=== PATIENT | female | born 1995 | race Two or more races ===

== ENCOUNTER 2017-03-31 10:27 | Inpatient (IN) | payer MEDICAID ==
--- NOTE | 2017-03-29 11:02 | PDGENHP ---
History and Physical - Chief Complaint Bilateral hip pain - History of Present Illness 1. Bilateral avascular necrosis of the hips~ 2. BL hip Dysplasia HISTORY OF PRESENT ILLNESS: Nikoleis a 21 y.o.~~female~with lupus and chronic steroid use~who I have had the pleasure to consult on today. I have enjoyed meeting her. She~lives in [place], [place]. 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 ~She~is single; she~has no~children. ~Nikoleenjoys hanging out with family, no sports. Tanks bilateral~hip pain started 2 months ago (L>R), with no~recalled trauma or injury, and with no~previous complaints. Nikoledoes not have~a known history of hip dysplasia. Presentation today is of anterior bilateral~hip pain. ~The hip does~wake her~at night and does not~click and catch on her. Sitting can be a real struggle~for her. Nikoledoes~report suffering from lower back pain episodes. Nikolehas not~participated in physical therapy and has not~tried other conservative measures. Nikolehas~utilized medication for pain management, including Vicodin and tramadol. Nikolehas used medication for a couple of months. Nikoleunderstands that she~has a hip and pelvis problem which should be researched and wishes to get a better understanding of her~hip status, followed by an establishment of a treatment strategy, hoping she~would be able to get back to her~well being active life. History: Past medical history: ~ Patient ~has a past medical history of AVN (avascular necrosis of bone) (HC code ); Hypertension; Lupus; and Lupus nephritis (HC code). Relevant familial history: None which is relevant Past surgical history: kidney biopsy Nikolehas never received general anesthesia. I have reviewed, verified and agree with the past medical, surgical, family and social history. Current Medications:Shayyhas a current medication list which includes the following prescription(s): hydrocodone/acetaminophen, lisinopril, mycophenolate mofetil, prednisone, and tramadol. ALLERGIES:~has No Known Allergies. Objective: Physical Examination: Nikoleis 5~feet 2~inches tall and weighs 113~Lbs. Abeba~is AAO x3; she~is well-nourished, in NAD. Skin is warm and dry. ~Breathing is non-labored. ~CV with RRR by pulse. Abdomen is soft, NTND. Currently, she~walks with a abnormal antalgic~gait. Trendelenburg sign is negative~and proprioception is normal, both~sides. She~presents with mild~signs of joint laxity. Beightons Score: 4 ~ Lower spine examination is negative~for sciatic or femoral nerve irritation with negative~SLR &~femoral stretch tests. Range of motion of the spine is normal~for flexion, extension, and rotations, with no~associated pain. Strength, Sensation and pulses are normal - bilaterally Ankles and knees exams are normal~and no~mal-alignment is evident. She~has no leg length discrepancy. Thigh circumference is symmetric~with no evidence for muscle atrophy~on both~ sides. Hip ROM (degrees): FL ER At 90~hip FL IR At 90~hip FL AB AD EX IR Neutral hip ER Neutral hip R 115 50 20 55 5 10 45 40 L 110~(pain) 45 25 50 5 10 45 40 Specific hip and pelvis tests: Quadrant JAMESON Roll Add. Longus R Negative +++ Negative Negative L +++ +++ +++ Negative Glut. Med ITB Pos. Imp R Negative 5/5 strength Negative 5/5 strength +++ L Negative 5/5 strength Negative 5/5 strength +++ Squeeze test measured normal Bony Symphysis pubis is pain free~to touch while concentric activity of the rectus abdominis, does not~produce pain at its insertion. Ilio Psos specific tests are negative for pain during cycling for both hips~and remarkable for nothing HF has no pain both hips. + anterior~capsule tenderness bilaterally Greater trochanteric burse is pain free~on both hips. Piriformis tests: FAIR is negative, with no~local signs of neuritis related to sciatic nerve. SIJs examination is produces pain on both sides~with normal~JAMESON in relation and local tenderness. Hamstrings tests are negative~functional contraction and negative~tendinopathy both hips. On a daily basis, the following percentages reflect Abeba's overall total pain : Deep hip: 100% Imaging: Radiology studies which I have personally reviewed, analyzed and measured are below: XR: AP of the hip and pelvis: Performed in a good~technique Coccyx to pubic symphysis distance 1.0~cm. 0~degrees caudal [place] Lines are preserved. No~Pathological signs are seen in the Symphysis Pubis. No~Pathological signs are seen at the Ischial tuberosity. ~ Specific measurements show: NSA~ LCE Sourcil~Angle Sharp's angle Lat. Cam Lat. Pincer C.Over~sign Head~Coverage % ATDmm R 121 26 6 42 N N 1 o'clock 73 24 L 121 29 3 37 N N 1 o'clock 77 25 Pos. wall sign ISS NAD ~~Dysplasia Comments R ++ Negative 7.1~mm + L ++ ++ 5.2~mm + Sclerosis Sup. Lat. OA Cysts Joint Space-WBZ Joint Space-Medial R Negative Negative Negative 3.7~mm 3.2~mm L Negative Negative Negative 3.4~mm 3.3~mm X Table lateral: Anterior cam lesion is not seen~on both hips. Alpha Angle: ~ Right 51~dergrees Left 57~degrees MRI shows: Shows avascular necrosis of bilateral femoral heads without collapse. Seen also on T1. Impression and plan: Nikoleis a 21 y.o.~active female~suffering from symptomatic bilateral~hip pain and knee pain~due to steroid induced avascular necrosis~causing significant disability to her~and altering her~sport and life activities. Physical examination, imaging, and her~story correspond with the diagnosis mentioned above. We discussed with the patient her diagnosis and that the most likely etiology of her avascular necrosis was her chronic use of steroids required for her lupus treatment. We educated her that her AVN is in an early stage and her femoral heads and cartilage surfaces appear to remain intact. As such, we are able to offer her surgical bilateral core decompressions with placement of autograft bone. We explained that this surgery will allow a reduction in pressure in her femoral heads and regrowth of bone into the areas. It was also explained that AVN can progress such that the femoral heads collapse and the cartilage is damaged and she could eventually develop arthritis. If she progresses to these later stages a core decompression would not be available to her and only a joint replacement surgery would be available for her hip pain. However, a joint replacement in such a young patient is not recommended given the high chance of requiring further revision in the future. As such we recommend she minimize high impact and weight bearing activities on her hips until she has core decompressions with bone autograft performed. Will refer patient to Dr. Kasper for evaluation and management of AVN of her knees. We may be able to coordinate surgical procedures for the patient if needed. We also encourage her to continue taking the bisphosphonate prescribed to her for AVN by her other doctors. Nikolewill review the info presented~and schedule surgery when she is ready. Nikoleis happy with this plan. I have also supplied her~with handouts, outlining the expected surgical treatment and rehab involved. I wish~Nikoleall the best, ~~ Rosio Beltran MD History Information - Allergies/Home Medication List Allergies/Adverse Reactions: No Known Allergies Allergy (Unverified 03/20/17 15:13) Home Medications: ALENDRONATE SODIUM 03/20/17 [Last Taken Unknown] Cellcept 03/20/17 [Last Taken Unknown] Lisinopril 03/20/17 [Last Taken Unknown] Plaquenil 200 mg (*) 03/20/17 [Last Taken Unknown] Prednisone 03/20/17 [Last Taken Unknown] I have personally reviewed and updated: medical history - Social History Smoking Status: Never smoked Review of Systems Review of Systems: Physical Exam Physical Exam:
[2017-03-31] MEDS ORDERED: BUPIVACAINE 0.25% 30 ML SDV ONE ×2 (10:33→16:32)
[2017-03-31] MEDS ORDERED: LIDOCAINE 1% 2 ML INJ ONE (10:51)
[2017-03-31] MEDS ORDERED: ceFAZolin 2 GM/SWFI 2 GM/20 ML SYR IVP ONE (10:58)
[2017-03-31] MEDS ORDERED: PREGABALIN 150 MG CAP PO ONE (10:58)
[2017-03-31] MEDS ORDERED: ACETAMINOPHEN 500 MG TAB PO ONE (10:58)
[2017-03-31] MEDS ORDERED: LIDOCAINE 1% 2 ML INJ ID PRN (11:03)
[2017-03-31] MEDS ORDERED: LR 1,000 ML IV ONE (11:03)
[2017-03-31] MEDS ORDERED: MIDAZOLAM 2 MG/2 ML VIAL IVP ONE (11:57)
--- NOTE | 2017-03-31 11:58 | PDANEPAE ---
ANE Past Medical History - Cardiovascular History Hx Hypertension: Yes Hx Arrhythmias: No Hx Chest Pain: No Hx Coronary Artery / Peripheral Vascular Disease: No Hx CHF / Valvular Disease: No Hx Palpitations: No - Pulmonary History Hx COPD: No Hx Asthma/Reactive Airway Disease: No Hx Recent Upper Respiratory Infection: No Hx Oxygen in Use at Home: No Hx Sleep Apnea: No Sleep Apnea Screening Result - Last Documented: Negative - Neurologic History Hx Cerebrovascular Accident: No Hx Seizures: No Hx Dementia: No - Endocrine History Hx Diabetes: No Hypothyroid: No Hyperthyroid: No Obesity: no - Renal History Hx Renal Disorders: Yes Renal History Comment: lupus nephritis-on Lisinopril - Liver History Hx Hepatic Disorders: No - Neurological & Psychiatric Hx Hx Neurological and Psychiatric Disorders: No Neurological / Psychiatric History Comment: low back pain - Cancer History Hx Cancer: No - Congenital Disorder History Hx Congenital Disorders: No - GI History GERD: no Hx Gastrointestinal Disorders: No - Other Health History Other Health History: avn=avascular necrosis causing bilat hip pain. LUPUS SLE and LUPUS NEPHRITIS. Rituximab infusion Q 6-8 mos - Chronic Pain History Chronic Pain: No - Surgical History Prior Surgeries: kidney bx. neck lymph nodes excised age 6. wisdom teeth removed ANE Review of Systems Review of Systems: - Exercise capacity METS (RN): 4 METS - Systems Constitutional: Reports: no symptoms EENMT: Reports: no symptoms Cardiac: Reports: no symptoms Respiratory: Reports: no symptoms Gastrointestinal: Reports: no symptoms Genitourinary: Reports: no symptoms Muscolosketal: Reports: no symptoms Skin: Reports: no symptoms ANE Patient History - Allergies Allergies/Adverse Reactions: No Known Allergies Allergy (Unverified 03/20/17 15:13) - Home Medications Home Medications: ALENDRONATE SODIUM 03/20/17 [Last Taken 03/27/17] Cellcept 03/20/17 [Last Taken 03/30/17 22:00] Lisinopril 03/20/17 [Last Taken 03/30/17 22:00] Plaquenil 200 mg (*) 03/20/17 [Last Taken 03/30/17 22:00] Prednisone 03/20/17 [Last Taken 03/30/17 22:00] - NPO status NPO Since - Liquids (Date): 03/31/17 NPO Since - Liquids (Time): 07:15 NPO Since - Solids (Date): 03/30/17 NPO Since - Solids (Time): 23:00 - Anes Hx Anes Hx: no prior problems - Smoking Hx Smoking Status: Never smoked - Alcohol Use Alcohol Use: Rarely - Family Anes Hx Family Anes Hx: neg - N/A ANE Labs/Vital Signs - Vital Signs Blood Pressure: 108/65 Heart Rate: 91 Respiratory Rate: 15 O2 Sat (%): 100 Height: 157.48 cm Weight: 51.256 kg ANE Physical Exam - Airway Neck exam: FROM Mallampati Score: Class 1 Mouth exam: normal dental/mouth exam - Pulmonary Pulmonary: no respiratory distress, no rales or rhonchi, clear to auscultation - Cardiovascular Cardiovascular: regular rate and rhythym, no murmur, rub, or gallop - ASA Status ASA Status: II ANE Anesthesia Plan Anesthesia Plan: GA w LMA
[2017-03-31] MEDS ORDERED: LR 500 ML IV PRN (16:12)
[2017-03-31] MEDS ORDERED: ONDANSETRON 4 MG/2 ML VIAL IVP PRN ×2 (16:12→17:07)
[2017-03-31] MEDS ORDERED: PROMETHAZINE HCL 25 MG/ML INJ IVP PRN (16:12)
[2017-03-31] MEDS ORDERED: HYDROCODONE/APAP 5/325 TAB PO PRN (16:12)
[2017-03-31] MEDS ORDERED: ACETAMINOPHEN 500 MG TAB PO PRN (16:12)
[2017-03-31] MEDS ORDERED: fentaNYL 100 MCG/2 ML INJ IVP PRN (16:12)
[2017-03-31] MEDS ORDERED: NALOXONE HCL 0.4 MG/ML INJ IVP PRN (16:12)
[2017-03-31] MEDS ORDERED: OXYCODONE/APAP 5/325 TAB PO PRN (16:12)
[2017-03-31] MEDS ORDERED: ONDANSETRON 4 MG/2 ML VIAL ONE (16:31)
[2017-03-31] MEDS ORDERED: DEXAMETHASONE 4 MG/ML VIAL ONE (16:31)
[2017-03-31] MEDS ORDERED: LIDOCAINE 2% 5 ML SDV ONE (16:32)
[2017-03-31] MEDS ORDERED: fentaNYL 100 MCG/2 ML INJ ONE (16:32)
[2017-03-31] MEDS ORDERED: PROPOFOL 200 MG/20 ML VIAL ONE (16:32)
[2017-03-31] MEDS ORDERED: MIDAZOLAM 2 MG/2 ML VIAL ONE (16:39)
[2017-03-31] MEDS ORDERED: DIAZEPAM 2 MG TAB PO PRN (17:07)
[2017-03-31] MEDS ORDERED: BISACODYL 10 MG SUPP PR PRN (17:07)
[2017-03-31] MEDS ORDERED: LACTULOSE 20 GM/30 ML UDCUP PO PRN (17:07)
[2017-03-31] MEDS ORDERED: ONDANSETRON DISINTEGRATING 4 MG TAB PO PRN (17:07)
[2017-03-31] MEDS ORDERED: ACETAMINOPHEN 325 MG TAB PO PRN (17:07)
[2017-03-31] MEDS ORDERED: MAGNESIUM HYDROXIDE 30 ML UDCUP PO PRN (17:07)
[2017-03-31] MEDS ORDERED: POLYETHYLENE GLYCOL 3350 17 GM PKT PO PRN (17:07)
[2017-03-31] MEDS ORDERED: fentaNYL 250 MCG/5 ML INJ ONE (17:11)
[2017-03-31] MEDS ORDERED: NS 1,000 ML IV SCH (17:15)
[2017-03-31] MEDS ORDERED: HYDROmorphone HCL/NS/PF 0.4 MG/2 ML SYR IVP PRN (17:17)
--- NOTE | 2017-03-31 19:16 | POSTANESTH ---
Post Anesthetic Evaluation Cardiovascular Status: Normal, Stable Respiratory Status: Normal, Stable Level of Consciousness/Mental Status: Can Participate in Eval Pain Control: Adequate, Prn Tx Ordered Nausea/Vomiting Control: Adequate, Prn Tx Ordered Complications Possibly Related to Anesthesia: None Noted
[2017-03-31] MEDS ORDERED: HYDROmorphONE/DILAUDID 1 MG/ML INJ ONE (19:29)
[2017-03-31] MEDS: HYDROmorphONE/DILAUDID 1 MG/ML INJ IVP PRN ×2 (19:32→19:44)
[2017-03-31] MEDS ORDERED: OXYCODONE/APAP 5/325 TAB ONE (20:08)
[2017-03-31] MEDS ORDERED: LISINOPRIL 5 MG TAB PO SCH (21:00)
[2017-03-31] MEDS ORDERED: MYCOPHENOLATE MOFETIL 250 MG CAP PO SCH (21:00)
[2017-03-31] MEDS ORDERED: predniSONE 5 MG TAB PO SCH (21:00)
[2017-03-31] MEDS: HYDROXYCHLOROQUINE SULFATE 200 MG TAB PO SCH (21:33)
[2017-03-31] MEDS: MYCOPHENOLATE 500 MG PO SCH (21:34)
[2017-03-31 22:55] VITALS: RESP 16
[2017-03-31] MEDS: SENNOSIDES/DOCUSATE SODIUM TAB PO SCH (23:27)
--- NOTE | 2017-04-01 00:38 | SUROPNOTE ---
[facility] Operative Report - Surgery Surgery was performed at [facility] at the [facility] on 03/31/17 Diagnosis: 1. Bilateral AVN of femoral head Indication: Failure to obtain satisfactory results with long standing conservative measures. Operation 1:Left side - Harvesting of bone marrow aspirate (BMA) from iliac crest and core decompression with BMA and allograft to femoral head AVN Surgeon: Gurjit Pelaez MD Collateral Clerk:Saar Jaramillo MD Anaesthetic:General Procedure: Supine on operating table. General anaesthetic. Antibiotics given. Using a designated Biomet BMA set Right iliac crest was approached 2 cm posterior from ASIS via a 5mm incision. A trochar was tapped int the iliac bone and 100 ml of BMA was aspirated from the pelvis. The BMA was handed over to Biomet rep in a sterile manner, for centrifugation and preparation for implantation. Using c-arm a 2.4 mm drill bit was drilled into the AVN lesion using both AP and Lateral views, via a 10mm incision.. Once in location a reamer was used over the drill bit to open the lateral cortex. The designated cannula was then introduced via the same tract and was tapped in to the center of the lesion, 5 mm away from sub chondral bone. 25ml of BMA was injected to the AVN area. Allograft Bone paste was introduced through the cannula to "close the door" on the tract so BMA stays in the lesion area. Cannula was backed out and skin closed. Operation 2: Right side - Harvesting of bone marrow aspirate (BMA) from iliac crest and core decompression with BMA and allograft to femoral head AVN Surgeon: Gurjit Pelaez MD Collateral Clerk:Larry Jaramilol MD Anaesthetic:General Procedure: Supine on operating table. General anaesthetic. Antibiotics given. Using a designated Biomet BMA set Right iliac crest was approached 2 cm posterior from ASIS via a 5mm incision. A trochar was tapped int the iliac bone and 100 ml of BMA was aspirated from the pelvis. The BMA was handed over to Biomet rep in a sterile manner, for centrifugation and preparation for implantation. Using c-arm a 2.4 mm drill bit was drilled into the AVN lesion using both AP and Lateral views, via a 10mm incision.. Once in location a reamer was used over the drill bit to open the lateral cortex. The designated cannula was then introduced via the same tract and was tapped in to the center of the lesion, 5 mm away from sub chondral bone. 25ml of BMA was injected to the AVN area. Allograft Bone cheeps were introduced through the cannula to "close the door" on the tract so BMA stays in the lesion area. Cannula was backed out and skin closed. After surgery, patientmoved both lower limbs and had no NV compromise. Post op instructions: 1. As toleratedweight bearing crutches for 6weeks 2. Pain killers as prescribed 3. Follow up visit with me, as scheduled, where a rehab protocol would be discussed 4. Avoid hip external rotation for 4 weeks Kind regards, Dr. Gurjit Pelaez
[2017-04-01] MEDS: OXYCODONE/APAP 5/325 TAB PO PRN ×2 (04:59→11:00)
[2017-04-01] MEDS: SENNOSIDES/DOCUSATE SODIUM TAB PO SCH (08:36)
[2017-04-01] MEDS: HYDROXYCHLOROQUINE SULFATE 200 MG TAB PO SCH (08:36)
[2017-04-01] MEDS: MYCOPHENOLATE 500 MG PO SCH (08:37)
[2017-04-01] MEDS ORDERED: LISINOPRIL 5 MG TAB PO SCH ×2 (09:00→21:00)
[2017-04-01] MEDS ORDERED: predniSONE 5 MG TAB PO SCH ×2 (09:00→21:00)
[2017-04-01] MEDS ORDERED: HYDROXYCHLOROQUINE SULFATE 200 MG TAB PO SCH ×2 (09:00→21:00)
[2017-04-01 11:30] VITALS: BP 111/66; PULSE 100; TEMP 98.6; O2SAT 95
[2017-04-01] MEDS ORDERED: NAPROXEN SODIUM 220 MG TAB PO PRN (11:30)
--- NOTE | 2017-04-01 12:18 | ASDISCHSUM ---
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
[2017-04-01] MEDS ORDERED: NON-FORMULARY NEW DRUG (Mycophenolate Mofetil [Cellcept] 1,500 MG) PO SCH (21:00)
[2017-04-02] MEDS ORDERED: Herbals/Supplements -Info Only PO SCH (09:00)
[2017-04-03] MEDS ORDERED: ALENDRONATE SODIUM 70 MG TAB PO SCH (07:00)
== END 2017-04-01 12:10 | disposition home or self-care (01) | DRG 482 ==
LOC: F3N 10:27 → EDSTATUS 11:15 → OBSVTOIN 17:07 → F3N 20:21
PROVIDERS: ADMIT Orthopaedic Surgery Sports Medicine; ATTEND Orthopaedic Surgery Sports Medicine
DX: M87.851 Other osteonecrosis, right femur (principal); M87.852 Other osteonecrosis, left femur; M32.9 Systemic lupus erythematosus, unspecified; Z79.52 Long term (current) use of systemic steroids
CPT/HCPCS: C1713; J0171; J0690; J1100; J1170; J2250; J2405; J2704; J3010